=== PATIENT | male | born 1990 | race Caucasian/White ===

== ENCOUNTER 2017-04-21 16:55 | Emergency (ER) | payer SELFPAY ==
[~2017-04-21] VITALS: Ht 182.9 cm; Wt 85.0 kg
[2017-04-21 16:56] VITALS: BP 144/73; PULSE 78; RESP 17; TEMP 98.3; O2SAT 99
== END 2017-04-21 19:23 | disposition left against medical advice (07) ==
LOC: NED 16:55
DX: R10.9 Unspecified abdominal pain (principal); Z53.21 Procedure and treatment not carried out due to patient leaving prior to being seen by health care provider
CPT/HCPCS: 99281